=== PATIENT | male | born 1950 | race Two or more races ===

== ENCOUNTER 2025-04-12 05:09 | Inpatient (IN) | payer MEDICARE, OTHER ==
[~2025-04-12] VITALS: Ht 185.4 cm; Wt 104.3 kg
[~2025-04-12 05:09] MED LIST: ASPI-1420 PO; ATOR10TA PO; CLOP75TA15 PO; COMPLERA PO; HYDR-3974 PO; LEVO750T21 PO; METR500T PO; MULT-754 PO; OMEG1CAP PO; TAMS0.4C34 PO; VITA1TAB20 PO
[2025-04-12] MEDS ORDERED: ANESTHESIA TRAY IN PYXIS 1 EA TRAY MC ONE (05:42)
[2025-04-12] MEDS ORDERED: EPINEPHRINE (1:1000) 1 MG/ML AMPUL ONE (05:42)
[2025-04-12] MEDS ORDERED: BUPIVACAINE 0.5 % PF 150 MG/30 ML VIAL ONE (05:42)
[2025-04-12] MEDS ORDERED: FENTANYL PF 250MCG/5ML AMPUL ONE (06:22)
[2025-04-12] MEDS ORDERED: ROCURONIUM BROMIDE 50 MG/5 ML ONE (06:23)
[2025-04-12] MEDS ORDERED: LABETALOL HCL IV 100MG VIAL ONE ×2 (07:05→08:01)
[2025-04-12] MEDS ORDERED: ROPIVACAINE HCL 0.5% 5 MG/ML 30ML VIAL ONE (07:20)
[2025-04-12] MEDS ORDERED: ALBUTEROL FS 2.5 MG/3 ML VIAL.NEB ONE ×2 (07:49→08:03)
[2025-04-12] MEDS ORDERED: hydrALAZINE HCL IV 20 MG VIAL ONE (07:58)
[2025-04-12 08:05] VITALS: O2SAT 88
[2025-04-12 08:25] VITALS: O2SAT 93
[2025-04-12] MEDS: ALBUTEROL FS 2.5 MG/3 ML VIAL.NEB NEB PRN (08:37)
[2025-04-12] MEDS ORDERED: FUROSEMIDE 20 MG/2 ML VIAL ONE (10:04)
[2025-04-12] MEDS: FUROSEMIDE 20 MG/2 ML VIAL IV SCH (10:06)
[2025-04-12] MEDS: FUROSEMIDE 20 MG/2 ML VIAL IV ONE ×2 (10:30→18:31)
[2025-04-12 12:00] VITALS: BP 116/62; TEMP 97.9; O2SAT 93
[2025-04-12] MEDS ORDERED: ROSU20TA32 PO (13:32)
[2025-04-12] MEDS ORDERED: METO-358 PO (13:32)
[2025-04-12] MEDS ORDERED: ALFU10TA10 PO (13:32)
[2025-04-12] MEDS ORDERED: BICT1TAB PO (13:32)
[2025-04-12] MEDS ORDERED: GEMTESA PO (13:32)
[2025-04-12] MEDS ORDERED: TADA5TAB13 PO (13:32)
[2025-04-12] MEDS ORDERED: HYDROCODONE/APAP 10/325MG TABLET PO PRN (14:00)
[2025-04-12] MEDS ORDERED: ACETAMINOPHEN 325 MG TABLET PO PRN (14:00)
[2025-04-12] MEDS ORDERED: Z GUARD REMEDY 4 OZ OINT TP PRN (14:00)
[2025-04-12] MEDS ORDERED: ONDANSETRON HCL/PF 4 MG/2 ML VIAL IVP PRN (14:00)
[2025-04-12] MEDS ORDERED: MAGNESIUM HYDROXIDE 30 ML UDC PO PRN (14:00)
[2025-04-12 16:00] VITALS: BP 132/61; TEMP 98.2; O2SAT 98
[2025-04-12 16:54] LABS: ALBUMIN 3.3 g/dL (3.4-5.0); BILIRUBIN,TOTAL 0.5 mg/dL (0.2-1.0); CALCIUM, SERUM 8.6 mg/dL (8.5-10.1); CREATININE 1.5 mg/dL (0.6-1.3); MAGNESIUM 2.2 mg/dL (1.8-2.4); POTASSIUM 4.1 mmol/L (3.5-5.1); TOTAL PROTEIN, SERUM 6.9 g/dL (6.4-8.2)
[2025-04-12 18:01] LABS: BASOPHILS % (AUTO) 0.2 % (0.0-2.0); EOSINOPHILS % (AUTO) 0.4 % (0.0-6.0); HEMATOCRIT 41 % (39-51); HEMOGLOBIN 13.5 g/dL (13.5-17.5); LYMPHOCYTES # (AUTO) 1.1 K/uL (0.8-4.8); LYMPHOCYTES % (AUTO) 12.4 % (20.0-44.0); MEAN CORPUSCULAR HEMOGLOBIN 29 PG (26.0-33.0); MEAN CORPUSCULAR HGB CONC 33 g/dl (31.0-36.0); MEAN CORPUSCULAR VOLUME 87 fL (80-96); MONOCYTES # (AUTO) 0.5 K/uL (0.1-1.30); MONOCYTES % (AUTO) 5.8 % (2.0-12.0); NEUTROPHILS # (AUTO) 7.3 K/uL (1.8-8.9); NEUTROPHILS % (AUTO) 81.2 % (43.0-81.0); PLATELET COUNT (AUTO) 155 K/uL (150-450); RED BLOOD CELL COUNT(AUTO) 4.69 MIL/uL (4.5-6.0); RED CELL DISTRIBUTION WIDTH 13.8 % (11.5-15.0)
[2025-04-12] MEDS: TAMSULOSIN 0.4 MG CAP.SR.24H PO SCH (18:31)
[2025-04-12 20:00] VITALS: BP 133/62; TEMP 98.2; O2SAT 95
[2025-04-12] MEDS: ATORVASTATIN 40 MG TABLET PO SCH (21:54)
[2025-04-13] VITALS: BP 144/62; TEMP 98.1; O2SAT 97
[2025-04-13 04:00] VITALS: BP 150/69; TEMP 99; O2SAT 97
[2025-04-13] MEDS: PANTOPRAZOLE 40 MG TABLET.DR PO SCH (07:30)
[2025-04-13 08:00] VITALS: BP 169/84; TEMP 98.8; O2SAT 97
[2025-04-13 08:36] VITALS: BP 169/84
[2025-04-13] MEDS: METOPROLOL SUCCINATE 50 MG TAB.SR.24H PO SCH (08:36)
[2025-04-13] MEDS: ASPIRIN EC 81 MG TABLET.DR PO SCH (08:37)
[2025-04-13] MEDS ORDERED: Medication Not On Formulary EA ([Gemtesa] 75 MG) PO SCH (09:00)
[2025-04-13] MEDS ORDERED: BIKTARVY 50-200-25 MG TABLET NF PO SCH (09:00)
[2025-04-13] MEDS ORDERED: Medication Not On Formulary EA (Alfuzosin Hcl 10 MG) PO SCH (09:00)
[2025-04-13] MEDS ORDERED: Medication Not On Formulary EA (Tadalafil 5 MG) PO SCH (09:00)
== END 2025-04-13 11:50 | disposition home or self-care (01) | DRG 507 ==
LOC: DS 05:09 → MEDSG1 12:05 → TELE1 12:07 → TELE-TD 12:55 → TELE1 18:17
PROVIDERS: ADMIT Nurse Practitioner Family; ATTEND Nurse Practitioner Family
PROC: 0RCK4ZZ Extirpation of Matter from Left Shoulder Joint, Percutaneous Endoscopic Approach (ICD-10-PCS; 2025-04-12)
PROC: 0RBK4ZZ Excision of Left Shoulder Joint, Percutaneous Endoscopic Approach (ICD-10-PCS; 2025-04-12)
PROC: 0PBB4ZZ Excision of Left Clavicle, Percutaneous Endoscopic Approach (ICD-10-PCS; 2025-04-12)
PROC: 0RQH4ZZ Repair Left Acromioclavicular Joint, Percutaneous Endoscopic Approach (ICD-10-PCS; principal; 2025-04-12 06:30)
DX: M75.42 Impingement syndrome of left shoulder (principal); I50.33 Acute on chronic diastolic (congestive) heart failure; J96.01 Acute respiratory failure with hypoxia; I13.0 Hypertensive heart and chronic kidney disease with heart failure and stage 1 through stage 4 chronic kidney disease, or unspecified chronic kidney disease; I25.10 Atherosclerotic heart disease of native coronary artery without angina pectoris; E78.5 Hyperlipidemia, unspecified; M89.8X9 Other specified disorders of bone, unspecified site; E83.9 Disorder of mineral metabolism, unspecified; Z95.5 Presence of coronary angioplasty implant and graft; M12.512 Traumatic arthropathy, left shoulder; S46.012A Strain of muscle(s) and tendon(s) of the rotator cuff of left shoulder, initial encounter; X58.XXXA Exposure to other specified factors, initial encounter; Y93.9 Activity, unspecified; Y92.009 Unspecified place in unspecified non-institutional (private) residence as the place of occurrence of the external cause; N40.0 Benign prostatic hyperplasia without lower urinary tract symptoms; Z82.49 Family history of ischemic heart disease and other diseases of the circulatory system; M10.9 Gout, unspecified; N18.9 Chronic kidney disease, unspecified
CPT/HCPCS: 36415; 71045-TC; 80053-TC; 82962-TC; 83735-TC; 83880; 84484-TC; 85025-TC; 93307-TC; A4217; A4565; G0378; J0171; J0360; J0461; J0690; J1885; J1938; J2704; J2795; J3010; J3490